=== PATIENT | female | born 1955 | race Two or more races ===

== ENCOUNTER 2021-06-13 14:00 | Outpatient (CLI) | payer OTHER | END 2021-06-13 14:23 | disposition home or self-care (01) | LOC: SONOGRAMA 14:00 | DX: M25.461 Effusion, right knee (principal); M71.21 Synovial cyst of popliteal space [Baker], right knee; M25.561 Pain in right knee ==

== ENCOUNTER 2022-03-18 09:01 | Outpatient (CLI) | payer OTHER | END 2022-03-18 09:13 | disposition home or self-care (01) | LOC: SONOGRAMA 09:01 | PROVIDERS: ATTEND General Practice | DX: M71.21 Synovial cyst of popliteal space [Baker], right knee (principal) ==

== ENCOUNTER 2023-01-16 08:23 | Outpatient (CLI) | payer OTHER | END 2023-01-16 08:27 | disposition home or self-care (01) | LOC: SONOGRAMA 08:23 | PROVIDERS: ATTEND Family Medicine | DX: M25.561 Pain in right knee (principal); Z96.651 Presence of right artificial knee joint ==